=== PATIENT | female | born 1965 ===

== ENCOUNTER 2017-05-19 15:44 | Inpatient (IN) ==
[2017-05-19] MEDS ORDERED: ONDANSETRON 4 MG/2 ML VIAL IV STA (16:08)
--- NOTE | 2017-05-19 16:19 | Emergency Department Note ---
Manjeet Ferrer Brooke, am scribing for, and in the presence of, Braxtno Mae MD 16:10 . Carmelita Ferrer James D, MD, personally performed the services described in this documentation, ascribed by Beatriz Burroughs in my presence, and it is both accurate and complete 618 . Arrival - Arrival Chief Complaint: Abdominal / Flank Pain Stated Complaint: Bowel obstruction ED Nursing Triage Note: Sent from [facility] for further evaluation of bowel obstruction, had CT done this am at [facility]. +right sided abdominal pain onset 05/17/17. +nausea. Last bowel movement this am---small amount. Mode of Arrival: Ambulatory Limitations: No Limitations Source: Patient, RN Notes Reviewed Time Seen by Provider: 05/19/17 16:05 - History of Present Illness HPI Narrative: Patient is a 52 year old female who was sent to the ED, from [facility], with c/o possible bowel obstruction. Patient went to [facility] with c/o right sided abdominal pain that started Wednesday but worsened last night. Patient says they did not send any paperwork or CT results with her. She denies having any fever, chills, or vomiting but says she has been nauseated. Her last bowel movement was this morning. She says it was small and "not normal." Patient has PMHx of cervical cancer. Onset (ago): day(s) (3) Date of Last Menstrual Period: hyst Allergies/Adverse Reactions: Allergies Allergy/AdvReac Type Severity Reaction Status Date / Time No Known Allergies Allergy Verified 05/19/17 15:50 Home Medications: Home Medications Medication Instructions Recorded Confirmed Type No Known Home Medications [No 05/19/17 05/19/17 History Known Home Medications] Review of System - Review of System 12 point system: reviewed and no additional remarkable complaints except as stated - Review of System Constitutional: Absent: chills, fever Respiratory: Absent: respiratory distress Gastrointestinal: Present: abdominal pain (right sided), nausea. Absent: vomiting Skin: Absent: rash Medical,Surgical,& Family Hx - Surgical History Reproductive Surgeries: Surgical HX of;: Hysterectomy - Social History Smoking Status: Current every day smoker Frequency of Alcohol Use: None Type of Drug Use: None Exam Vital Signs: Vital Signs Temperature 97.8 F 05/19/17 16:30 Pulse Rate 85 05/19/17 16:30 Respiratory Rate 18 05/19/17 16:30 Blood Pressure 122/75 05/19/17 16:30 O2 Sat by Pulse Oximetry 99 05/19/17 15:46 GENERAL: This is a well-nourished well-developed white female in no apparent distress. VITAL SIGNS: Reviewed HEENT: Head is atraumatic and normocephalic. Pupils are equal round react to light. Extraocular movements are intact. Oropharynx is benign with moist mucous membranes. NECK: Neck is soft and supple without tenderness. There are no masses. There is no lymphadenopathy. LUNGS: Lungs are clear to auscultation. Chest rises symmetrically. There is no chest wall tenderness. CV: Heart is regular rate and rhythm without murmurs rubs or gallops. ABDOMEN: Abdomen is soft, tender to palpation right lower quadrant without rebound or guarding. There are no abdominal abnormal masses palpated. There is no organomegaly. Bowel sounds are present and active. SKIN: Skin is warm and dry. No rash. EXTREMITIES: Patient has full range of motion without tenderness. There is no pedal edema. NEUROLOGIC: Awake alert and oriented 4. Cranial nerves II through XII are grossly intact. Motor is 5 over 5 in all extremities bilaterally. Course - Consultations Consultation #1: Discussed with Dr. Morgan MARTIN. Patient will be admitted to his service. Initial orders written for him. He will assume patient's care upon arrival in the [facility]. Time: 17:14 Results - Labs Lab Results: I have reviewed the patients labs Labs: Lab performed in clinic and reviewed by me: CBC: WBCs 9200, hemoglobin 14.4, hematocrit 43.1, platelet count 205,000 Chemistry: Sodium 144, potassium 4.2, chloride 105, CO2 26, BUN 9, creatinine 0.7, glucose 99, AST 22, ALT 37 Urine: Specific gravity 1.015, WBCs rare, RBCs rare - Diagnostic Findings Procedure: Abdominal x-ray: image reviewed by me (Nonspecific gas pattern, no free air, gas in the rectum.), Chest x-ray: image reviewed by me (No infiltrates , no pleural effusions.), CT Abdomen and Pelvis: image reviewed by me (Fat stranding surrounding the mesentery in the right upper quadrant.) Disposition Clinical Impression: Right lower quadrant abdominal pain Case discussed with: patient Disposition: Still a Patient Condition: Stable Time of Disposition: 17:14
--- NOTE | 2017-05-19 16:46 | CT Report ---
History: Right-sided abdominal pain. Nausea. Evaluate for bowel obstruction. History of cervical cancer Date: 05/19/2017 Study: CT abdomen and pelvis with IV contrast Comparison exam: No previous CT abdomen currently available for comparison Technique: Spiral CT sections were obtained from the lung bases to the pubic symphysis following 100 mL Omnipaque [address] abdomen: The partially visualized lung bases are clear. There is mild platelike scar or subsegmental atelectasis in the right middle lobe and left lower lobe. There is no gross pleural or pericardial effusion. There is no evidence of pneumoperitoneum. The liver, spleen, pancreas, adrenal glands, kidneys, bile ducts, and fluid-filled gallbladder are unremarkable. There is bilateral renal excretion without hydronephrosis. There is a small amount of strandy and hazy increased density in the omental fat of the right upper abdomen, immediately anterior to the lateral segment left lobe of the liver. This is in close proximity to the colon. There is diverticulosis of the hepatic flexure, though there is no kathie wall thickening to suggest definite acute diverticulitis or colitis. There is no evidence of mechanical bowel obstruction. The appendix is identified and is normal. There is no aneurysm of the mildly calcified abdominal aorta. There is no lymphadenopathy by short axis diameter criteria. CT pelvis: There is no pelvic mass or abnormal pelvic fluid collection. There is no pelvic lymphadenopathy by short axis diameter criteria. The uterus is surgically absent. Impression: There is nonspecific mild strandy and hazy opacity in the omental fat in the right upper quadrant of uncertain etiology. This could represent some nonspecific mesenteritis. There is diverticulosis of the hepatic flexure, though there is no focal wall thickening of the colon in this area to specifically suggest diverticulitis or colitis. There is no gallbladder wall thickening or calcific density gallstone. There is no evidence of appendicitis There is no significant acute finding otherwise The CT exam was performed using one or more of the following dose reduction techniques: Automated exposure control, adjustment of the mA and/or kV according to patient size, or use of iterative reconstruction technique. PROCEDURE INTERPRETED AT [facility] DEPARTMENT OF RADIOLOGY Final Report Signed by: Dr. Nicole Garrido
--- NOTE | 2017-05-19 16:47 | XRay Report ---
XR chest 1V Indication: Abdominal pain Comparison: None available Findings: The heart and mediastinum are normal in size and configuration. The pulmonary vascularity is normal in caliber. No lung infiltrates, effusions, pneumothorax or other abnormality is demonstrated. Impression: Normal chest x-ray PROCEDURE INTERPRETED AT [facility] DEPARTMENT OF RADIOLOGY Final Report Signed by: Dr. Jesus Mckay
--- NOTE | 2017-05-19 16:48 | XRay Report ---
XR abdomen 2V Indication: Abdominal pain Comparison: None available Findings: No free fluid or free air seen. The bowel gas pattern appears within normal limits. Contrast is seen in the kidneys ureters and bladder. No abnormal calcifications are present. No other abnormality is identified. Impression: No evidence of acute findings demonstrated. PROCEDURE INTERPRETED AT [facility] DEPARTMENT OF RADIOLOGY Final Report Signed by: Dr. Jesus Mckay
[2017-05-19 17:34] LABS: Apearance,Urine CLEAR (Clear); Bilirubin,Urine Negative (Negative); Blood, Urine Negative (Negative); Glucose,Urine (UA) Negative (Negative); Ketones,Urine Negative (Negative); Mucus,Urine Few /LPF (Occasional); Nitrite,Urine Negative (Negative); Protein,Urine Negative; RBC,Urine 1 /HPF (0-4); Squamous Epithelial Cell,Urine Occasional /HPF (0-10); Urine Color Yellow (Yellow); Urine Specific Gravity > 1.060 (1.001-1.035); WBC,Urine 1 /HPF (0-6)
[2017-05-19] MEDS ORDERED: ONDANSETRON 4 MG/2 ML VIAL ONE (17:36)
--- NOTE | 2017-05-19 17:49 | Ultrasound Report ---
Exam: US gallbladder Date:05/19/2017 5:09 PM Comparison: No previous ultrasound available Indication: Right upper quadrant abdominal pain Real-time ultrasound images are captured and archived. The liver, bile ducts, pancreas, and right kidney are visualized and appear normal. There is a highly echogenic focus with posterior acoustic shadowing compatible with gallstone in the lumen of the gallbladder. There is no gallbladder wall thickening or abnormal pericholecystic fluid. ORGAN MEASUREMENTS Liver Length: 16.7 cm Gallbladder Wall Thickness: 2.3 mm CBD: 3.5 mm Right kidney: 9.0 cm length Impression: Cholelithiasis PROCEDURE INTERPRETED AT [facility] DEPARTMENT OF RADIOLOGY Final Report Signed by: Dr. Nicole Garrido
[2017-05-19] MEDS ORDERED: HYDROmorphone 2 MG/1 ML VIAL IV PRN (19:23)
[2017-05-19] MEDS ORDERED: ACETAMINOPHEN 325 MG TABLET PO PRN (19:23)
[2017-05-19] MEDS ORDERED: ONDANSETRON 4 MG/2 ML VIAL IV PRN (19:23)
[2017-05-19 19:44] LABS: Basophils % 0.1 % (0.0-0.8); Eosinophils # 0.3 10*3/uL (0.0-0.87); Hemoglobin 12.9 GM/DL (12.0-16.0); Immature Granulocytes % 0.2 %; Immature Granulocytes Absolute 0.02 #; Lymphocytes # 4.4 10*3/uL (1.4-4.0); Lymphocytes % 46.3 % (21.3-54.2); Mean Corpuscular HGB Conc 34.9 GM/DL (32-36); Mean Corpuscular Hemoglobin 31 PG (27-34); Mean Corpuscular Volume 88.9 FL (87-102); Mean Platelet Volume 10.1 FL (9.6-12.0); Monocytes # 0.8 10*3/uL (0.11-0.8); Monocytes % 8.6 % (1.7-12.7); Neutrophils % 41.8 % (38.7-73.9); Platelet Count 198 T/CUMM (130-400); Red Blood Count 4.16 MC/CUMM (3.8-5.5); Red Cell Distribution Width 12.7 % (9.3-17.3); White Blood Count 9.5 T/CUMM (4-12)
[2017-05-19 20:04] LABS: Alanine Aminotransferase 23 U/L (13-56); Albumin 3.6 G/DL (3.4-5.0); Alkaline Phosphatase 99 U/L (45-117); Aspartate Amino Transferase 15 U/L (0-37); Bilirubin,Total < 0.39 MG/DL (0.2-1.0); Blood Urea Nitrogen 11 MG/DL (7-18); Calcium 8.8 MG/DL (8.5-10.1); Glucose 94 MG/DL (74-106); Osmolality,Calculated 271.8 MOS/KG (273-304); Potassium 3.8 MMOL/L (3.5-5.1); Sodium 137 MMOL/L (136-145); Total Protein 6.6 G/DL (6.4-8.3)
[2017-05-19] MEDS: LACTATED RINGERS 1,000 ML IV SCH (21:14)
[2017-05-19] MEDS: AMPICILLIN/SULBACTAM 3,000 MG in SODIUM CHLORIDE 0.9% 100 ML IV SCH ×2 (21:19→23:01)
[2017-05-20] MEDS: LACTATED RINGERS 1,000 ML IV SCH ×3 (04:40→22:59)
[2017-05-20] MEDS: AMPICILLIN/SULBACTAM 3,000 MG in SODIUM CHLORIDE 0.9% 100 ML IV SCH ×3 (05:27→21:38)
--- NOTE | 2017-05-20 06:18 | General Surg History&Physical ---
Assessment and Plan - Time spent with patient Time spent with patient: Less than 30 minutes (1) Diverticula of colon Status: Acute Assessment and plan: This appears clinically to be more consistent with a right sided diverticulitis rather than acute cholecystitis. She is already responding to antibiotics. We will continue IV antibiotics today and if her pain subsides substantially we might switch her to a biotics by mouth and discharge her home. She will eventually need colonoscopy to follow-up this area. Current Visit: Yes (2) Cholelithiases Status: Acute Assessment and plan: I would favor this being an incidentally discovered covered gallstone. She has no gallbladder wall thickening and did not have a sonographic [place] sign. I think that her inflammation is more likely from the colon. I did inform the patient that she has a gallstone. If this continues to be a problem and we might want to relook that this is being a source of her pain. Current Visit: Yes Qualifiers: Cholecystitis presence: without cholecystitis History of Present Illness Chief complaint: Abdominal pain History of present illness: Ms. Lopez is a 52 year old female Who 2 days ago began having right upper quadrant epigastric and right sided abdominal pain. This pain came on rather suddenly over the course of several hours and his stayed constant since that time. Pain is been moderate in severity. Pain is actually gotten better since she was admitted and started on IV antibiotics. Pain is constant and worse if she moves and feels better if she lays still. She has had a small amount of nausea but not severe nausea and no vomiting. The pain does not radiate. The pain is not colicky in nature. She has not had fever or chills. She has never had pain like this before. She was not aware that she had gallstones until she had a gallbladder ultrasound last night. CT scan did not show gallbladder pathology that showed some stranding in the paracolic fat in the right upper quadrant suggestive of diverticulitis. Diverticulosis was noted in the colon in this region Home Medications Medication Instructions Recorded Confirmed Type No Known Home Medications [No 05/19/17 05/19/17 History Known Home Medications] Allergies Allergy/AdvReac Type Severity Reaction Status Date / Time No Known Allergies Allergy Verified 05/19/17 15:50 Medical,Surgical,& Family Hx - Medical History Neurology: No history of: Migraine Musculoskeletal: History of: Musculoskeletal Problems (FRACTURES TO LEFT WRIST, RIGHT ANKLE, LEFT CLAVICLE) Other: History of: Cancer (CERVICAL) - Surgical History Reproductive Surgeries: Surgical HX of;: Hysterectomy - Family History Family History: Reports;: Family Cancer (SISTER (STAGE 4 COLON CANCER)), Family Diabetes (FATHER), Family Heart Disease (FATHER (STENTS)), Family Hypertension ( FATHER, DAUGHTER) - Social History Smoking Status: Current every day smoker Frequency of Alcohol Use: None Type of Drug Use: None Exam - Constitutional Vitals: Period Temp Pulse Resp BP Sys/Florian Pulse Ox Last 24 Hr 97.2 F-97.8 F 66-85 16-20 111-122/65-78 95-99 General appearance: no acute distress - Head Head exam: Present: normocephalic - Eye Eye exam: Absent: scleral icterus - ENT Mouth exam: Present: normal voice - Neck Neck exam: Present: trachea midline - Respiratory Respiratory exam: Present: clear to auscultation bilaterally. Absent: accessory muscle use - Cardiovascular Cardiovascular exam: Present: RRR - GI/Abdominal GI/Abdominal exam: Present: normal bowel sounds, tenderness (Poorly localized in the right upper quadrant and epigastric region), soft. Absent: distended, guarding, mass, rebound - Extremities Exam Extremities exam: Absent: edema - Neurological Exam Neurological exam: Present: alert, oriented X3. Absent: motor sensory deficit Speech: Present: normal - Skin Skin exam: Present: normal color - Constitutional Constitutional: Absent: anorexia, chills, fever(s), weight loss - Cardiovascular Cardiovascular: Absent: chest pain at rest, chest pain with activity, dyspnea, dyspnea on exertion - Respiratory Respiratory: Absent: dyspnea, hemoptysis, dyspnea on exertion - Gastrointestinal Gastrointestinal: Present: abdominal pain, nausea. Absent: bloating, cramping, diarrhea, hematemesis, hematochezia, melena, vomiting, jaundice - Genitourinary Genitourinary: Absent: hematuria - Musculoskeletal Musculoskeletal: Absent: back pain - Neurological Neurological: Absent: focal weakness, syncope - Endocrine Endocrine: Absent: polyuria Hematologic/Lymphatic: Absent: easy bleeding, easy bruising Results - Labs CBC & BMP: 05/19/17 19:18 05/19/17 19:18 Lab Results: I have reviewed the past 24 hour labs - Diagnostic Findings Procedure: CT Abdomen and Pelvis: image reviewed by me, report reviewed by me, Ultrasound: report reviewed by me
[2017-05-20 07:45] LABS: Basophils % 0.1 % (0.0-0.8); Eosinophils # 0.2 10*3/uL (0.0-0.87); Eosinophils % 2.5 % (0.00-10.9); Hematocrit 36.2 VOL% (35.7-47.0); Hemoglobin 12.5 GM/DL (12.0-16.0); Immature Granulocytes % 0.1 %; Immature Granulocytes Absolute 0.01 #; Lymphocytes # 2.9 10*3/uL (1.4-4.0); Lymphocytes % 39.7 % (21.3-54.2); Mean Corpuscular HGB Conc 34.5 GM/DL (32-36); Mean Corpuscular Hemoglobin 31 PG (27-34); Mean Corpuscular Volume 89.8 FL (87-102); Monocytes # 0.6 10*3/uL (0.11-0.8); Monocytes % 8.8 % (1.7-12.7); Neutrophils # 3.5 10*3/uL (1.4-7.4); Neutrophils % 48.8 % (38.7-73.9); Platelet Count 161 T/CUMM (130-400); Red Blood Count 4.03 MC/CUMM (3.8-5.5); Red Cell Distribution Width 12.9 % (9.3-17.3); White Blood Count 7.2 T/CUMM (4-12)
[2017-05-20] MEDS: PANTOPRAZOLE 40 MG TABLET PO SCH (08:58)
--- NOTE | 2017-05-20 17:39 | Event Note ---
She still has some pain and tenderness in her right upper quadrant this afternoon. We will continue IV antibiotics for now. This appears to be a right sided diverticulitis.
[2017-05-21] MEDS: LACTATED RINGERS 1,000 ML IV SCH (04:44)
[2017-05-21] MEDS: AMPICILLIN/SULBACTAM 3,000 MG in SODIUM CHLORIDE 0.9% 100 ML IV SCH (05:56)
[2017-05-21] MEDS: PANTOPRAZOLE 40 MG TABLET PO SCH (08:36)
--- NOTE | 2017-05-21 10:52 | Discharge Summary ---
Hospital Course - Hospital Course Hospital Course: Patient is a 52-year-old female admitted with right sided abdominal pain. Diverticulitis was suspected and patient received IV antibiotics and bowel rest was monitored. She improved significantly was discharged home on oral antibiotics. Cholelithiasis was incidentally noted and originally there was concern for cholecystitis, but this is felt to be less likely. The time of discharge, the patient was tolerating oral intake and activity without difficulty. She was not requiring any pain medications. She was discharged home in good condition with oral antibiotics and follow with Dr. Mora. Diagnosis - Discharge Diagnosis (1) Diverticulitis Status: Acute (2) Cholelithiases Status: Acute Specialty Discharge - Follow Up or Referrals Follow up with: Ethan Mora III., MD [Physician] - 06/07/17 9:30 am Discharge Plan - Discharge Data Disposition: Disch To Home/Self Care Condition at Discharge: Stable Discharge Diet: other (See below) Activity: other (Avoid strenuous activity) Contact your physician if you experience:: fever over 101, Nausea/Vomiting ( Return of abdominal pain) - Discharge Medications New Amoxicillin/Clav Tab [Augmentin Tab] 875 mg PO Q12H #14 tablet - Follow Up or Referral Follow Up: Ethan Mora III., MD [Physician] - 06/07/17 9:30 am - Forms/Instructions Instructions: Diverticulitis (DC), Diverticulitis Diet (DC) Exam - Constitutional Vitals: Period Temp Pulse Resp BP Sys/Florian Pulse Ox Last 24 Hr 97.5 F-98.1 F 61-74 16-20 116-145/62-83 94-97 General appearance: no acute distress - Eye Eye exam: Absent: scleral icterus - Respiratory Respiratory exam: Present: clear to auscultation bilaterally - Cardiovascular Cardiovascular exam: Present: regular rate and rhythm - GI/Abdominal GI/Abdominal exam: Present: normal bowel sounds, soft. Absent: distended, tenderness - Extremities Exam Extremities exam: Absent: calf tenderness, edema - Neurological Exam Neurological exam: Present: alert, oriented X3 - Psychiatric Psychiatric exam: Present: normal affect, normal mood - Skin Skin exam: Present: normal color Discharge Results - Imaging and Cardiology Procedure: Chest x-ray: image reviewed by me, report reviewed by me (No specific abnormality), KUB x-ray: image reviewed by me, report reviewed by me ( No specific abnormal), CT Abdomen and Pelvis: image reviewed by me, report reviewed by me (Diverticulosis noted; nonspecific stranding and inflammation noted; no abscess formation identified), Ultrasound: image reviewed by me, report reviewed by me (gallbladder; cholelithiasis noted; no gallbladder wall thickening or pericholecystic fluid) DS: Provider Date of admission: 05/19/17 17:14 Primary care physician: . No PCP Attending physician on admission: Ethan Mora III., Discharging clinician: Erma Haywood PA-C
--- NOTE | 2017-05-21 11:08 | General Surgery Progress Note ---
Assessment and Plan (1) Diverticula of colon Status: Acute Assessment and plan: This appears clinically to be more consistent with a right sided diverticulitis rather than acute cholecystitis. She is already responding to antibiotics. We will continue IV antibiotics today and if her pain subsides substantially we might switch her to a biotics by mouth and discharge her home. She will eventually need colonoscopy to follow-up this area. 05/21: She looks and feels much better. She states that she has minimal if any pain now and wants to go home. I think this should be fine. We will change her to oral antibiotics by mouth and have her follow-up with us in the next week or 2. She is instructed to call us or come to the emergency department if she has recurrence of her symptoms. Current Visit: Yes (2) Cholelithiases Status: Acute Assessment and plan: I would favor this being an incidentally discovered covered gallstone. She has no gallbladder wall thickening and did not have a sonographic [place] sign. I think that her inflammation is more likely from the colon. I did inform the patient that she has a gallstone. If this continues to be a problem and we might want to relook that this is being a source of her pain. Current Visit: Yes Qualifiers: Cholecystitis presence: without cholecystitis Subjective Patient reports: Present: feels better, pain is less. Absent: nausea, vomiting , fever Exam - Constitutional Vitals: Period Temp Pulse Resp BP Sys/Florian Pulse Ox Last 24 Hr 97.5 F-98.1 F 61-74 16-20 116-145/62-83 94-97 General appearance: no acute distress - Head Head exam: Present: normocephalic - Eye Eye exam: Absent: scleral icterus - Respiratory Respiratory exam: Absent: accessory muscle use - GI/Abdominal GI/Abdominal exam: Present: soft. Absent: distended, tenderness, rebound Results - Labs CBC & BMP: 05/20/17 07:30 05/19/17 19:18 Specialty Discharge - Follow Up or Referrals Follow up with: Ethan Mora III., MD [Physician] - 06/07/17 9:30 am
[2017-05-21 11:56] VITALS: BP 123/80
== END 2017-05-21 12:15 | disposition home or self-care (01) | DRG 392 ==
LOC: N.ED 15:44 → N.EDINP 17:14 → N.3E 18:45
PROVIDERS: ADMIT Surgery; ATTEND Surgery